=== PATIENT | male | born 1970 | race Caucasian/White ===

== ENCOUNTER 2017-01-13 23:29 | Inpatient (IN) | payer OTHER ==
[2017-01-13] MEDS ORDERED: IOPAMIDOL 370 (76%) 100 ML VIAL IV ONE (23:30)
[2017-01-14 01:08] LABS: ABSOLUTE NEUTROPHIL COUNT 8.8 K/mm3 (1.8-7.7); BASO % 0.3 % (0.2-1.0); EOS % 0.1 % (0.9-2.9); HEMOGLOBIN 11.1 gm/l (14.0-18.0); IMM NEUT% 0.3 % (0-1); LYMPH # 0.9 (1.0-4.8); LYMPH % 8.7 % (15-45); MEAN CELL VOLUME 91.4 fl (80.0-94.0); MEAN CORPUSCULAR HEMOGLOBIN 30.7 pg (27.0-31.0); MEAN CORPUSCULAR HGB CONC 33.6 g/dl (33.0-37.0); MEAN PLATELET VOLUME 9.4 fl (7.4-10.4); MONO # 0.9 (0.0-0.8); MONO % 8.6 % (4-12); PLATELET COUNT 275 K/mm3 (130-400); RED CELL DISTRIBUTION WIDTH 12.1 % (11.5-14.5)
[2017-01-14 01:18] LABS: ALB/GLOB RATIO 1.5 (>1.0); ALBUMIN 4.4 gm/dL (3.5-5.7); CALCIUM 9.7 mg/dL (8.6-10.3)
[2017-01-14 01:45] LABS: SPECIFIC GRAVITY 1.025 (1.001-1.030); URINE APPEARANCE CLEAR; URINE BILIRUBIN NEGATIVE (NEGATIVE); URINE BLOOD NEGATIVE (NEGATIVE); URINE COLOR YELLOW; URINE GLUCOSE (UA) TRACE (NEGATIVE); URINE LEUKOCYTE ESTERASE NEGATIVE (NEGATIVE); URINE NITRITE NEGATIVE (NEGATIVE); URINE PROTEIN TRACE (NEGATIVE); URINE UROBILINOGEN NORMAL (0-1 mg/dl)
[2017-01-14] MEDS ORDERED: HYDROMORPHONE HCL 0.5 MG/0.5 ML SYRINGE ONE ×3 (01:50→04:32)
[2017-01-14] MEDS ORDERED: ONDANSETRON 4 MG/2ML 2 ML VIAL ONE (01:50)
[2017-01-14 05:22] VITALS: BMI 34.6
[2017-01-14] MEDS ORDERED: BLISTEX LIPSTICK 1 EACH TP PRN (06:50)
[2017-01-14] MEDS ORDERED: DIPHENHYDRAMINE HCL 50 MG/1 ML VIAL IV PRN (06:50)
[2017-01-14] MEDS ORDERED: BISACODYL 5 MG TABLET.EC PO PRN (06:50)
[2017-01-14] MEDS ORDERED: MAGNESIUM HYDROXIDE 30 ML UDCUP PO PRN (06:50)
[2017-01-14] MEDS ORDERED: BISACODYL 10 MG SUP PR PRN (06:50)
[2017-01-14] MEDS ORDERED: SODIUM CHLORIDE 0.9% 100 ML IV PRN (06:50)
[2017-01-14] MEDS ORDERED: MENTHOL/CETYLPYRD 1 EACH LOZENGE PO PRN (06:50)
[2017-01-14] MEDS ORDERED: ONDANSETRON 4 MG/2ML 2 ML VIAL IV PRN (06:56)
[2017-01-14] MEDS ORDERED: MORPHINE SULFATE 4 MG/ML SYRINGE IV PRN (06:56)
[2017-01-14] MEDS: D5 1/2NS with 20 mEq KCL 1,000 ML IV SCH ×2 (07:23→19:16)
[2017-01-14] MEDS: PANTOPRAZOLE SODIUM 40 MG VIAL IV SCH (07:25)
[2017-01-14] MEDS: SODIUM CHLORIDE 0.9% 1,000 ML IV SCH ×2 (07:25→08:33)
--- NOTE | 2017-01-14 08:11 | CT ---
Exam Type: ABD/PELVIS W/ CON Date and Time: 01/14/2017 1:59 AM Clinical information: Epigastric pain Comparison: Plain films 10/19/2007 Technique: Contiguous axial 4 mm images were obtained from the lung bases through the pelvis after the uneventful IV administration of 100 cc of Isovue-370. Sagittal and coronal reformations with high resolution lung algorithm images were also obtained at this time. CT DI: 20.6 DLP 1124.6 FINDINGS: Lung base : Dependent and atelectatic changes are noted at the lung bases. Visualized heart:There is no pericardial effusion. LIVER: Diffuse fatty infiltration, without focal lesion. Probable sparing in the gallbladder fossa. Hepatomegaly is present with the liver measuring 21.3 cm on sagittal image 81. BILE DUCTS: normal caliber. GALLBLADDER: No calcified gallstones. Normal caliber wall. PANCREAS: Inflammatory changes noted along the pancreatic head and uncinate process. Pancreas enhances normally. Calcification is present on the inferior aspect of the pancreas head on image 51 likely relating to the sequela of prior pancreatitis. SPLEEN: within normal limits. ADRENALS: within normal limits. KIDNEYS: within normal limits. Stomach and small BOWEL: Normal caliber. Large bowel: Air and stool are noted within the large bowel. Appendix is normal. Scattered areas of diverticulosis without diverticulitis or abscess formation. LYMPH NODES: No enlarged mesenteric lymph nodes. PERITONEUM: Inflammatory material is identified extending from the pancreatic head along the right paracolic gutter into the pelvis. No focal, drainable fluid collection is noted. No free air. VESSELS: within normal limits RETROPERITONEUM: within normal limits. ABDOMINAL WALL: within normal limits. Bladder: Normal BONES: within normal limits. Bone hemangioma is present within T11. IMPRESSION: Findings of probable pancreatitis involving the pancreatic head and uncinate process with fluid and inflammatory products extending into the right lower quadrant via the right paracolic gutter. A calcification is noted within the pancreatic head likely relating to chronic pancreatitis. No focal, drainable fluid collection or other complications of pancreatitis are noted though imaging is not targeted at arterial evaluation of the splenic artery for pseudoaneurysm. Hepatomegaly with steatosis. Other incidental findings as above. Preliminary report was provided by [employer] at approximately 0258 hours on 01/14/2017.
[2017-01-14] MEDS: HYDROMORPHONE HCL 1 MG/ML SYRINGE IV PRN ×7 (08:34→23:48)
[2017-01-14] MEDS: DOCUSATE SODIUM 100 MG CAPSULE PO SCH ×2 (08:36→21:11)
--- NOTE | 2017-01-14 10:29 | HP ---
Tom Cross [id number] DATE OF ADMISSION: 01/14/2017 CHIEF COMPLAINT: Abdominal pain. HISTORY OF PRESENT ILLNESS: The patient is a 46-year-old male who presented due to abdominal pain. He does not have any significant prior history of abdominal pain. He noted that he woke up yesterday and had thrown up once which is atypical for him. He generally did not feel very hungry the whole day so he did not eat much, but by 5:30 last night he had a beer and a pizza and noticed worsening of his abdominal pain. He describes it has being a band-like pain around the abdomen radiating to the back and it would wax and wane, but not completely resolve the a course of minutes. He noted a worsening of his pain. It was predominantly right sided and near the level of the umbilicus, but radiated to his back. His son had a diagnosis of appendicitis, so he came to the emergency room concerned about this possibility. In the emergency room he was noted to have elevated lipase and hospitalist service requested to admit for care of pancreatitis. PAST MEDICAL HISTORY: Remarkable for chronic kidney disease, he has had stage III chronic kidney disease attributed to non-steroidal use for his psoriatic arthritis. He has psoriatic arthritis and is currently on Enbrel. He has a history of gastroesophageal reflux disease, history of elevated cholesterol on what sounds like a statin and a fibrate. He has a history of hypertension, history of obesity, history of obstructive sleep apnea on CPAP. PAST SURGICAL HISTORY: Remarkable for umbilical hernia repair 2007. ALLERGIES: METHOTREXATE. MEDICATIONS: Patient is not certain, but reports: 1. Lisinopril 10 mg daily. 2. Prilosec 20 mg daily. 3. Atorvastatin 5 mg daily. 4. Hydrocodone acetaminophen 5/325 up to four times daily. 5. Amlodipine 5 mg daily. 6. Fenofibrate. 7. Multivitamin. 8. Vitamin C. 9. Enbrel for psoriasis. He is not sure if this is 40 or 50 mg weekly. 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 His is a teacher. They have two sons. No smoking. No chewing. He reports up to two drinks a day, but indicates he has never had any withdraws. Last drink was 5:30 p.m. yesterday. No particular druze affiliation. Hobbies include gardening, sports, and travel. He has not had any recent travel outside of the [place]. FAMILY HISTORY: Father is 83 and has had a bypass recently. Mom is 79 with dementia. REVIEW OF SYSTEMS: Eyes, ears, nose, and throat have been okay. Breathing is okay. Heart has been okay. Stomach hurts, but has improved with some pain medicines. He has had no vomiting recently other than last night. No diarrhea. No constipation problems. No urinary complaints. No extremity complaints. No skin complaints other than the psoriasis which has been stable. He has had no central nervous system complaints. His joints have been generally doing fairly good. PHYSICAL EXAMINATION: GENERAL: Nontoxic male with a flushed appearance. VITAL SIGNS: Temperature 98.6, pulse 76, blood pressure 141/86, respirations 20, 96% saturation on room air. HEENT: Head is normocephalic, atraumatic. Eyes: Pupils are slightly small bilaterally consistent with pain medicines. Ears are normal. Nose is normal. Mouth is unremarkable. NECK: Supple. No JVD. LUNGS: Clear to auscultation bilaterally. HEART: Regular rate and rhythm without murmur. ABDOMEN: Obese, healed umbilical hernia repair noted. Bowel sounds are markedly decreased. He is tender across the abdomen slightly more on the right than the left and about the level of the umbilicus or slightly above. Noble's signs is generally negative. GENITOURINARY: Grossly normal male. EXTREMITIES: Unremarkable. Pulses are good throughout. Perfusion appears to be good. NEURO: Patient is tired, but answers appropriately and is oriented although is off by one day in this phlebotomy technologist. LABORATORY: White count 10.8, hemoglobin 11.1, platelets 275. His MCV is 91.4, RDW 12.1. Sodium 133, potassium 4.3, chloride 99, CO2 23, BUN 19, creatinine 1.3, glucose 141. Calcium is 9.7, bilirubin 0.6, AST 34, ALT 41, alk phos 24. Troponin less than 0.01. Albumin 4.4, globulin 2.9. Lipase is 545. Urinalysis is normal. DIAGNOSTICS: CT second hand report is consistent with pancreatitis. Final report is not available yet. ASSESSMENT AND PLAN: 1. Acute pancreatitis, etiology not evident yet. He does have some alcohol use. Some elevated triglycerides and a gallstone would not be excluded at this time although labs do not suggest. We will monitor. Nothing by mouth, intravenous fluids, check ultrasound, check lipids. Pain medicines and nausea medicines. 2. Psoriatic arthritis on Enbrel. We will be holding this for now and monitor. 3. Dyslipidemia. We will be checking lipids, hold oral medications for now. 4. Hypertension. Consider intravenous enalapril if blood pressure control needed while nothing by mouth. 5. Gastroesophageal reflux disease. Anticipate use of intravenous Protonix. 6. Obstructive sleep apnea. He may use his home CPAP if desired. 7. Chronic kidney disease, will monitor. We will try to avoid use of antiinflammatories for now. 8. Full code status, we will be monitoring. 9. Regular alcohol use. He denies any history of withdraw, but will monitor for this. He reports his last drink was 5:00 p.m. on 01/13/2017. 10. Venous thrombosis prophylaxis. Anticipate mechanical and encourage ambulation at this time in the case that patient would need cholecystectomy or other surgical treatment. JOB: [id number] CC: Dr. Arun Metzger, high school industrial arts teacher
--- NOTE | 2017-01-14 10:39 | US ---
LIMITED ABDOMINAL ULTRASOUND HISTORY: Pancreatitis. Limited sonography of the right upper quadrant performed. FINDINGS: GALLBLADDER LENGTH: 6.4 cm. GALLBLADDER WALL THICKNESS: 1.0 mm. GALLBLADDER CONTENT: Multiple mobile stones measuring up to 1.2 cm in size SONOGRAPHIC CARR'S SIGN: Not elicited. Patient on analgesic medication. COMMON BILE DUCT CALIBER: Limited assessment due to poor penetration of the liver and regional artifact.. REGIONAL FREE FLUID: None. IMPRESSION: Cholelithiasis without gallbladder wall thickening or regional free fluid. Limited assessment of extrahepatic biliary tree. Findings discussed with Dr. Lynch of the hospitalist clinical service on 01/14/2017 at 1037 hours.
[2017-01-14] MEDS ORDERED: MULTIVITAMINS 10 ML, FOLIC ACID 2 MG, MAGNESIUM SULFATE 1 G/2 ML 2 G, THIAMINE HCL 100 ... IV ONE ×5 (10:40)
[2017-01-14 12:28] LABS: CHOLESTEROL RISK RATIO 3.3 (4.0-6.7)
[2017-01-14] MEDS ORDERED: LORAZEPAM 2 MG/ML 1ML SDV IM PRN (13:33)
[2017-01-14] MEDS ORDERED: LORAZEPAM 2 MG/ML 1ML SDV IV PRN (13:33)
--- NOTE | 2017-01-14 16:15 | PCMCONS ---
General Surgery Consult: CC: abdominal pain HPI: 46yo M with abdominal pain. This started yesterday, is intermittent, crampy in nature, and refers to the back. He has never had pain like this before. Over the last day, the pain worsened, he had one episode of associated nausea/vomiting, prompting visit to the ER. He reports subjective fevers and chills but denies any recent CP/SOB, change in bladder fx, constipation, diarrhea, unintentional weight loss, easy bleeding/bruising, or other associated symptoms. REVIEW OF SYSTEMS CONSTITUTIONAL: As per HPI. EARS, NOSE, MOUTH, THROAT: No sneezing or runny nose CARDIOVASCULAR: As per HPI. RESPIRATORY: As per HPI. GASTROINTESTINAL: As per HPI. GENITOURINARY: As per HPI. NEUROLOGICAL: No history of seizures HEMATOLOGIC: As per HPI. MUSCULOSKELETAL: No change in strength. LYMPHATICS: No history of splenectomy. PSYCHIATRIC: No change in personality or affect PMH: HTN, HL, psoriatic arthritis PSH: Open umbilical hernia repair with mesh Meds: Lisinopril, Felodipine, visteril, fenofibrate, enbril All: Methotrexate, NSAIDS (had prior NSAID induced LUCIUS) SH: Denies tobacco, drinks 2-10 alcoholic beverages per night FH: MGM with breast cancer, Paternal uncle with prostate cancer Vitals (last 24 hours): Vital Signs Last 12 Hours Temp Pulse Resp BP Pulse Ox 01/14/17 15:58 98.7 F 95 17 146/84 95 01/14/17 11:00 98.2 F 89 18 141/90 93 01/14/17 07:46 98.4 F 92 17 143/89 95 01/14/17 05:15 98.6 F 76 20 141/86 96 Physical Exam: General/Constitutional: Vitals documented above, comfortable in NAD Psych: A&O x 3, normal judgment and insight. Recent and remote memory intact. Mood and affect normal. Eyes: Pupils equal, no scleral icterus Ears, Nose, Mouth, Throat: gross hearing intact Neck: Supple Heart: RRR, no LE edema Lungs: Equal rise and fall of chest wall, non-labored breathing, no audible wheezes Neuro: Gross sensation intact Abdomen: Soft, mild distension, mild epigastric TTP, no guarding. No umbilical hernia. Negative Noble's sign. Labs (Last 24 hours): Laboratory Results - last 24 hr 01/14/17 01/14/17 01/14/17 00:53 01:25 09:55 WBC 10.8 H RBC 3.61 L Hgb 11.1 L Hct 33.0 MCV 91.4 MCH 30.7 MCHC 33.6 RDW 12.1 Plt Count 275 Neut % (Auto) 82.0 H Lymph % (Auto) 8.7 L [place] % (Auto) 8.6 Baso % (Auto) 0.3 Absolute Neuts (auto) 8.8 H Eosinophils % 0.1 L Sodium 133 L Potassium 4.3 Chloride 99 Carbon Dioxide 23 Anion Gap 15 BUN 19 Creatinine 1.3 Estimated GFR 59 L BUN/Creatinine Ratio 15 Glucose 141 H Calcium 9.7 Total Bilirubin 0.6 AST 34 ALT 41 Alkaline Phosphatase 24 L Troponin I < 0.01 Total Protein 7.3 Albumin 4.4 Globulin 2.9 Albumin/Globulin Ratio 1.5 Triglycerides 250 H Cholesterol 146 Cholesterol Risk Factr 3.3 L LDL Cholesterol 52 L VLDL Cholesterol 50 H HDL Cholesterol 44 Lipase 545 H Urine Color Yellow Urine Appearance Clear Urine pH 6.0 Ur Specific [place] 1.025 Urine Protein Trace Urine Glucose (UA) Trace Urine Ketones Negative Urine Blood Negative Urine Nitrite Negative Urine Bilirubin Negative Urine Urobilinogen Normal Ur Leukocyte Esterase Negative % Immature Granulocyt 0.3 Radiology: CT A/P: Pancreatitis, acute and chronic changes RUQ US: Cholelithiasis without cholecystitis. A/P: 46yo M with pancreatitis. Although there are multiple etiologies for his pancreatitis (gallstones, alcohol, hypertriglyceridemia, meds), I believe that this is gallstone pancreatitis until the gallbladder is removed. The operation and expected post-operative course were discussed at length. We discussed the risks of the operation to include, but not limited to: bleeding, pain, infection, scar, damage to surrounding structures (liver, small intestine , stomach, colon), damage to bile ducts (CBD injury risk 1/300), retained stone , bile leak, need for conversion to an open procedure, need for cholangiogram, need for additional procedures, failure to improve symptoms, and the risks of anesthesia (heart attack, arrhythmia, stroke, blood clot, and ). The patient understands these risks and agrees to proceed with surgery. Will plan for laparoscopic cholecystectomy tomorrow. Please make NPO at midnight. Please initiate CIWA scale given alcohol use. I counseled the patient that his complication rate may be higher given his use of Enbril. I also counseled him that he may still have recurrent pancreatitis after removing the gallbladder due to the other possible etiologies. I encouraged him to decrease and/or stop drinking. Romeo Logan MD General Surgeon
[2017-01-14] MEDS: LORAZEPAM 2 MG/ML 1ML SDV IV PRN (21:43)
[2017-01-15] MEDS: LORAZEPAM 2 MG/ML 1ML SDV IV PRN ×3 (02:09→12:24)
[2017-01-15] MEDS: D5 1/2NS with 20 mEq KCL 1,000 ML IV SCH ×2 (02:09→08:09)
[2017-01-15] MEDS: HYDROMORPHONE HCL 1 MG/ML SYRINGE IV PRN ×3 (02:10→19:48)
[2017-01-15] MEDS: ACETAMINOPHEN 500 MG TABLET PO PRN ×2 (02:28→16:15)
[2017-01-15] MEDS ORDERED: MULTIVITAMINS 10 ML, FOLIC ACID 2 MG, MAGNESIUM SULFATE 1 G/2 ML 2 G, THIAMINE HCL 100 ... IV SCH ×5 (06:00)
[2017-01-15 06:04] LABS: ABSOLUTE NEUTROPHIL COUNT 8.5 K/mm3 (1.8-7.7); BASO % 0.4 % (0.2-1.0); EOS # 0.1 (0.0-0.5); EOS % 0.6 % (0.9-2.9); HEMATOCRIT 35.5 % (32.0-52.0); HEMOGLOBIN 11.5 gm/l (14.0-18.0); IMM NEUT% 0.4 % (0-1); LYMPH # 1.5 (1.0-4.8); LYMPH % 13.6 % (15-45); MEAN CELL VOLUME 94.2 fl (80.0-94.0); MEAN CORPUSCULAR HEMOGLOBIN 30.5 pg (27.0-31.0); MEAN CORPUSCULAR HGB CONC 32.4 g/dl (33.0-37.0); MEAN PLATELET VOLUME 9.3 fl (7.4-10.4); MONO # 0.9 (0.0-0.8); MONO % 8.5 % (4-12); NEUT % 76.5 % (43-75); PLATELET COUNT 245 K/mm3 (130-400); RED CELL DISTRIBUTION WIDTH 12.3 % (11.5-14.5)
[2017-01-15 06:31] LABS: ALB/GLOB RATIO 1.4 (>1.0); CALCIUM 8.1 mg/dL (8.6-10.3)
--- NOTE | 2017-01-15 07:29 | PDOC43 ---
- Subjective S: Pain improved. States he was "in and out of it" last night. No other complaints. O: Tm 102.9, tachycardic to 110s, remainder of vitals and I/O below Physical exam: General: Comfortable in NAD HEENT: NCAT Heart: Tachycardic but regular Lungs: Non-labored breathing Abdomen: Soft, distended, minimal epigastric TTP, no guarding. Improved from yesterday's exam. Labs: Below A/P: 46yo M with pancreatitis, possible due to gallstones. I had planned on performing a laparoscopic cholecystectomy today. However, with his new onset fever and tachycardia, I believe it is prudent to delay surgery. These findings are likely due to alcohol withdrawal (received 3mg Ativan on CIWA last night) vs. progressive pancreatitis. Will continue to re-assess and plan for laparoscopic cholecystectomy when physiology has improved. OK for clear liquids from my standpoint (NPO at midnight to be tentatively prepared for OR tomorrow). OK for DVT chemo-prophylaxis from my standpoint. Romeo Logan MD - Objective Vital Signs Temperature 101.9 F 01/15/17 04:00 Pulse Rate 109 01/15/17 04:00 Respiratory Rate 20 01/15/17 05:33 Blood Pressure 128/97 01/15/17 04:00 O2 Saturation by Pulse Oximetry 97 01/15/17 04:00 Oxygen Delivery Method Room Air Oxygen Flow Rate 0 Laboratory 01/15/17 05:30 01/15/17 05:30 01/15/17 01/14/17 05:30 09:55 RBC 3.77 L MCV 94.2 H MCHC 32.4 L Calcium 8.1 L Alkaline Phosphatase 23 L Triglycerides 250 H Cholesterol Risk Factr 3.3 L LDL Cholesterol 52 L VLDL Cholesterol 50 H Lipase 294 H Active Medication Orders Category Date Time Status Acetaminophen [Tylenol] Med 01/15/17 02:23 Active 1,000 mg PO Q6H PRN Bisacodyl [Dulcolax] Med 01/14/17 06:50 Active 10 mg NC DAILY PRN Bisacodyl [Dulcolax] Med 01/14/17 06:50 Active 5 mg PO DAILY PRN D5 1/2NS with 20 mEq KCL [D51/2NS with 20 mEq KCL] 1, Med 01/14/17 07:00 Active 000 ml IV 125 mls/hr Diphenhydramine HCl [Benadryl] Med 01/14/17 06:50 Active 25 - 50 mg IV Q6H PRN Docusate Sodium [Colace] Med 01/14/17 09:00 Active 100 mg PO BID Hydromorphone HCl [Dilaudid] Med 01/14/17 23:41 Active 1 - 2 mg IV Q1H PRN Lip [place] [Blistex] Med 01/14/17 06:50 Active 1 each TP PRN PRN Lorazepam [Ativan] Med 01/14/17 07:05 Active 1 mg IV Q2H PRN Lorazepam [Ativan] Med 01/14/17 13:33 Active 2 mg IM Q5M PRN Lorazepam [Ativan] Med 01/14/17 13:33 Active See Protocol IV PRN PRN Magnesium Hydroxide [Milk of Magnesia] Med 01/14/17 06:50 Active 30 ml PO DAILY PRN Menthol/Cetylpyridinium [Cepacol] Med 01/14/17 06:50 Active 1 each PO PRN PRN Multivitamins [Mvi-12] 10 ml Med 01/15/17 06:00 Active Folic Acid 2 mg Magnesium Sulfate 1 G/2 ml [Magnesium Sulfate] 2 g Thiamine HCl 100 mg Sodium Chloride 0.9% 1,000 ml IV Q24H Ondansetron 4 mg/2ml Vial [Zofran] Med 01/14/17 06:56 Active 4 mg IV Q4H PRN Pantoprazole Sodium [Protonix] Med 01/14/17 07:00 Active 40 mg IV Q24H Sodium Chloride 0.9% 100 ml Med 01/14/17 06:50 Active IV PRN Sodium Chloride 0.9% Flush [Normal Saline 10ml Flush] Med 01/14/17 06:50 Active 10 - 50 ml IV PRN PRN Sodium Chloride 0.9% Flush [Normal Saline 10ml Flush] Med 01/14/17 09:00 Active 10 ml IV Q8HR Generic Name Dose Route Start Last Admin Trade Name Freq PRN Reason Stop Dose Admin Acetaminophen 1,000 mg 01/15/17 02:23 01/15/17 02:28 Tylenol PO 1,000 mg Q6H PRN Administration Pain or Temperature > 100.5 F Benzocaine/Menthol 1 each 01/14/17 06:50 Cepacol PO PRN PRN Sore Throat Bisacodyl 10 mg 01/14/17 06:50 Dulcolax NC DAILY PRN Constipation Bisacodyl 5 mg 01/14/17 06:50 Dulcolax PO DAILY PRN Constipation Diphenhydramine HCl 25 - 50 mg 01/14/17 06:50 Benadryl IV Q6H PRN Nausea/Vomiting Docusate Sodium 100 mg 01/14/17 09:00 01/14/17 21:11 Colace PO Not Given BID KARIN Hydromorphone HCl 1 - 2 mg 01/14/17 23:41 01/15/17 02:10 Dilaudid IV 2 mg Q1H PRN Administration Pain Potassium Chloride/Dextrose/Sod Cl 1,000 mls @ 125 mls/hr 01/14/17 07:00 02:09 D51/2ns With 20 Meq Kcl IV 125 mls/hr .Q8H KARIN Administration Sodium Chloride 100 mls @ 25 mls/hr 01/14/17 06:50 Sodium Chloride 0.9% IV PRN PRN Flush Multivitamins/Minerals 10 ml/ 1,015.4 mls @ 100 mls/hr 01/15/17 06:00 01/15/17 05:45 Folic Acid 2 mg/ Magnesium IV 100 mls/hr Sulfate 2 g/ Thiamine HCl 100 Q24H KARIN Administration mg/ Sodium Chloride Lorazepam 1 mg 01/14/17 07:05 01/15/17 05:46 Ativan IV 1 mg Q2H PRN Administration Agitation Lorazepam 2 mg 01/14/17 13:33 Ativan IM Q5M PRN SEIZURE Lorazepam 0 mg 01/14/17 13:33 Ativan IV PRN PRN Alcohol Withdrawal Protocol Magnesium Hydroxide 30 ml 01/14/17 06:50 Milk Of Magnesia PO DAILY PRN Constipation Ondansetron HCl 4 mg 01/14/17 06:56 Zofran IV Q4H PRN Nausea/Vomiting Pantoprazole Sodium 40 mg 01/14/17 07:00 01/14/17 07:25 Protonix IV 40 mg Q24H KARIN Administration Petrolatum/Paraffin/Mineral Oil 1 each 01/14/17 06:50 Blistex TP PRN PRN Dry and/or chapped lips Sodium Chloride 10 - 50 ml 01/14/17 06:50 01/14/17 07:23 Normal Saline 10ml Flush IV 20 ml PRN PRN Administration IV Flush Sodium Chloride 10 ml 01/14/17 09:00 01/15/17 05:34 Normal Saline 10ml Flush IV Not Given Q8HR KARIN Intake and Output 01/13/17 01/14/17 01/15/17 23:59 23:59 23:59 Intake Total 3732 1599 Output Total 2325 350 Balance 1407 1249
[2017-01-15] MEDS: PANTOPRAZOLE SODIUM 40 MG VIAL IV SCH (07:58)
[2017-01-15] MEDS: DOCUSATE SODIUM 100 MG CAPSULE PO SCH ×3 (11:08→20:07)
[2017-01-15] MEDS: HYDROMORPHONE HCL 2 MG/ML SYRINGE IV PRN ×4 (12:25→21:38)
--- NOTE | 2017-01-15 13:09 | PDOC43 ---
- Subjective Chief Complaint: pancreatitis Patient reports some abd pain, R sided, rad to back. Feeling some nausea with activity, walking. Some tremor, getting some librium for this, sl sleepy. Would like a milkshake. - Objective Vital Signs Temperature 99.3 F 01/15/17 07:34 Pulse Rate 110 01/15/17 07:34 Respiratory Rate 20 01/15/17 07:34 Blood Pressure 144/86 01/15/17 07:34 O2 Saturation by Pulse Oximetry 96 01/15/17 08:00 Oxygen Delivery Method Room Air Oxygen Flow Rate 0 Vital Signs Last 12 Hours Temp Pulse Resp BP Pulse Ox 01/15/17 08:00 96 01/15/17 07:34 99.3 F 110 20 144/86 96 01/15/17 05:33 20 01/15/17 04:00 101.9 F 109 20 128/97 97 01/15/17 01:30 102.9 F 113 20 147/96 95 Intake and Output 01/13/17 01/14/17 01/15/17 23:59 23:59 23:59 Intake Total 3732 1599 Output Total 2325 350 Balance 1407 1249 General: Other (sl sleepy , answers generally appropriately.) HEENT: Atraumatic, Other (sl less flushed today) Lungs: Clear to Auscultation Bilaterally, Normal Air Movement Cardiovascular: Other (tachycardia) Abdomen: Soft, Tenderness (some R sided tenderness), Involuntary Guarding (sl guarding noted), Hypoactive Bowel Sounds, Mild Distention Extremities: No Edema Skin: Other (mild flush, improved.) Neurological: Normal Speech Psych/Mental Status: Other (sl medicated.) Laboratory 01/15/17 05:30 01/15/17 05:30 01/15/17 01/14/17 05:30 09:55 RBC 3.77 L MCV 94.2 H MCHC 32.4 L Calcium 8.1 L Alkaline Phosphatase 23 L Triglycerides 250 H Cholesterol Risk Factr 3.3 L LDL Cholesterol 52 L VLDL Cholesterol 50 H Lipase 294 H Current Medications: Current meds reviewed in EMR. Active Medications Acetaminophen (Tylenol) 1,000 mg PO Q6H PRN PRN Reason: Pain or Temperature > 100.5 F Last Admin: 01/15/17 02:28 Dose: 1,000 mg Benzocaine/Menthol (Cepacol) 1 each PO PRN PRN PRN Reason: Sore Throat Bisacodyl (Dulcolax) 10 mg [place] DAILY PRN PRN Reason: Constipation Bisacodyl (Dulcolax) 5 mg PO DAILY PRN PRN Reason: Constipation Diphenhydramine HCl (Benadryl) 25 - 50 mg IV Q6H PRN PRN Reason: Nausea/Vomiting Docusate Sodium (Colace) 100 mg PO BID [facility] Last Admin: 01/15/17 11:08 Dose: Not Given Hydromorphone HCl (Dilaudid) 1 - 2 mg IV Q1H PRN PRN Reason: Pain Last Admin: 01/15/17 07:57 Dose: 2 mg Hydromorphone HCl (Dilaudid) 1 - 2 mg IV Q1H PRN PRN Reason: Pain Last Admin: 01/15/17 12:25 Dose: 2 mg Potassium Chloride/Dextrose/Sod Cl (D51/2ns With 20 Meq Kcl) 1,000 mls @ 125 mls/hr IV .Q8H [facility] Last Admin: 01/15/17 08:09 Dose: Not Given Sodium Chloride (Sodium Chloride 0.9%) 100 mls @ 25 mls/hr IV PRN PRN PRN Reason: Flush Multivitamins/Minerals 10 ml/Folic Acid 2 mg/ Magnesium Sulfate 2 g/ Thiamine HCl 100 mg/ Sodium Chloride 1,015.4 mls @ 100 mls/hr IV Q24H [facility] Last Admin: 01/15/17 05:45 Dose: 100 mls/hr Lorazepam (Ativan) 1 mg IV Q2H PRN PRN Reason: Agitation Last Admin: 01/15/17 12:24 Dose: 1 mg Lorazepam (Ativan) 2 mg IM Q5M PRN PRN Reason: SEIZURE Lorazepam (Ativan) 0 mg IV PRN PRN; Protocol PRN Reason: Alcohol Withdrawal Magnesium Hydroxide (Milk Of Magnesia) 30 ml PO DAILY PRN PRN Reason: Constipation Ondansetron HCl (Zofran) 4 mg IV Q4H PRN PRN Reason: Nausea/Vomiting Pantoprazole Sodium (Protonix) 40 mg IV Q24H [facility] Last Admin: 01/15/17 07:58 Dose: 40 mg Petrolatum/Paraffin/Mineral Oil (Blistex) 1 each TP PRN PRN PRN Reason: Dry and/or chapped lips Sodium Chloride (Normal Saline 10ml Flush) 10 - 50 ml IV PRN PRN PRN Reason: IV Flush Last Admin: 01/15/17 07:58 Dose: 10 ml Sodium Chloride (Normal Saline 10ml Flush) 10 ml IV Q8HR KARIN Last Admin: 01/15/17 11:08 Dose: Not Given - Problems: Assessment/Plan (1) Pancreatitis Qualifiers: Chronicity: acute Pancreatitis type: alcohol induced Acute pancreatitis complication: no infection or necrosis Qualifier Code: (K85.20 ) Alcohol induced acute pancreatitis without necrosis or infection Status: AcuteAssessment/Plan: Laboratory Tests 01/14/17 01/14/17 01/15/17 00:53 09:55 05:30 Triglycerides 250 H Lipase 545 H 294 H Lipase improving. Suspect primary cause is alcohol related, but cholelithiasis noted. With temp, increased HR, temp, plan add'l fluids; if ongoing/worsening, consider for re-imaging 01/16/17. Consider trial of clear liquids Pain control appears ok. Elevated HR and WBC attributed to pancreatitis. REcheck in am. (2) HTN (hypertension) Qualifiers: Hypertension type: essential hypertension Qualifier Code: (I10) Essential (primary) hypertension Status: ChronicAssessment/Plan: alcohol associated HTN with essential HTN suspected. currently not on meds due to sips/chips diet. (3) Psoriatic arthritis Status: ChronicAssessment/Plan: on Meds, but holding now. (4) Alcohol withdrawal Qualifiers: Complication of substance-induced condition: uncomplicated Qualifier Code: (F10.230) Alcohol dependence with withdrawal, uncomplicated Status: SuspectedAssessment/Plan: with HTN, tachycardia, fever. On banana bag, CIWA, ativan (5) Cholelithiasis Qualifiers: Cholelithiasis location: gallbladder Cholecystitis presence: without cholecystitis Status: ChronicAssessment/Plan: Possible role in pancreatitis, but LFTs not particularly abnormal . Considering for cholecystectomy, but fever, concern for W/D precludes this. (6) Hyponatremia with normal extracellular fluid volume Status: AcuteAssessment/Plan: Suspect related to low osm IVF, will revise. VTE Prophylaxis: mechanical. Encourage activity. Disposition: to be determined. Concern for pancreatitis recovery and prospects of alcohol w/ d.
[2017-01-15] MEDS ORDERED: SODIUM CHLORIDE 0.9% 1,000 ML IV SCH (13:15)
[2017-01-15] MEDS: D5NS with 20mEq KCL 1,000 ML IV SCH ×2 (13:42→19:46)
[2017-01-15 23:18] VITALS: BP 136/90
== END 2017-01-15 23:59 | disposition still patient (30) | DRG 439 ==
LOC: ED 23:29 → MS 01-14 04:15
PROVIDERS: ADMIT Family Medicine; ATTEND Family Medicine
DX: K85.20 Alcohol induced acute pancreatitis without necrosis or infection (principal); F10.239 Alcohol dependence with withdrawal, unspecified; E87.1 Hypo-osmolality and hyponatremia; I10 Essential (primary) hypertension; L40.50 Arthropathic psoriasis, unspecified; K80.80 Other cholelithiasis without obstruction